=== PATIENT | male | born 1975 | race Caucasian/White ===

== ENCOUNTER 2018-10-09 22:35 | Emergency (ER) | payer OTHER ==
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
--- NOTE | 2018-10-13 07:39 | CR ---
Nasal bone: Three views of the nasal bone were obtained. Comparison: No previous study. Mildly displaced and comminuted nasal bone fracture is identified. Soft tissue swelling is noted. Large retention cyst measuring about 2.7 cm is seen within the right maxillary sinus. Other visualized sinuses are clear. Impression: 1. Comminuted and displaced nasal bone fracture. 2. Probable large retention cyst within the right maxillary sinus. Diagnostic code #3
== END 2018-10-09 23:45 | disposition home or self-care (01) ==
LOC: JD.ED 22:35
DX: S02.2XXA Fracture of nasal bones, initial encounter for closed fracture (principal); I10 Essential (primary) hypertension; F17.210 Nicotine dependence, cigarettes, uncomplicated; W22.8XXA Striking against or struck by other objects, initial encounter
CPT/HCPCS: 70160; 70160-26; 99283; 99283-25

== ENCOUNTER 2019-12-07 03:13 | Emergency (ER) | payer OTHER ==
[2019-12-07] MEDS ORDERED: Sodium Chloride 0.9% 10 ML Syringe FLUSH PRN (03:45)
[2019-12-07] MEDS ORDERED: HYDROmorphone 1 MG/ML Syringe IVPUSH ONE (03:45)
[2019-12-07] MEDS ORDERED: Ondansetron 4 MG/2 ML SDV IVPUSH ONE (03:45)
[2019-12-07] MEDS ORDERED: Sodium Chloride 0.9% 1,000 ML IV SCH (03:45)
--- NOTE | 2019-12-07 05:22 | EDM.PDOC ---
ED HPI GENERAL MEDICAL PROBLEM - General Chief Complaint: Abdominal Pain Stated Complaint: ABDOMINAL PAIN Time Seen by Provider: 12/07/19 03:38 Source of Information: Reports: Patient, RN Notes Reviewed - History of Present Illness INITIAL COMMENTS - FREE TEXT/NARRATIVE: 44 yr old male with onset of R upper abd pain a few hrs ago that is not going away. Had a fatty meal last evening. Has occasional pain like this in the past but not often or recent until now. Nausea, made himself vomit. No fever or chills. No chest pain or trouble breathing. Does not radiate to back. Epigastric Pain Score (Numeric/FACES): 8 - Related Data Allergies Allergy/AdvReac Type Severity Reaction Status Date / Time No Known Allergies Allergy Verified 12/07/19 04:05 Home Meds: Home Meds Losartan/Hydrochlorothiazide [Losartan-HCTZ 50-12.5 MG] 1 tab PO DAILY 12/07/19 [History] Past Medical History Cardiovascular History: Reports: Hypertension - Past Surgical History Musculoskeletal Surgical History: Reports: Knee Replacement, Other (See Below) Social & Family History - Tobacco Use Smoking Status *Q: Current Some Day Smoker Years of Tobacco use: 5 Packs/Tins Daily: 0.2 Used Tobacco, but Quit: No - Caffeine Use Caffeine Use: Reports: Coffee - Recreational Drug Use Recreational Drug Use: No ED ROS GENERAL - Review of Systems Review Of Systems: See Below Constitutional: Denies: Fever, Chills, Diaphoresis HEENT: Reports: No Symptoms Respiratory: Denies: Shortness of Breath Cardiovascular: Denies: Chest Pain GI/Abdominal: Reports: Abdominal Pain Musculoskeletal: Denies: Back Pain Skin: Reports: No Symptoms Neurological: Reports: No Symptoms ED EXAM, GI/ABD - Physical Exam Exam: See Below General Appearance: Alert, Moderate Distress Head: Atraumatic Neck: Supple Respiratory/Chest: No Respiratory Distress, Lungs Clear, Normal Breath Sounds Cardiovascular: Regular Rate, Rhythm GI/Abdominal Exam: Soft, Tender (RUQ, abd otherwise nontender) Back Exam: No: CVA Tenderness (L), CVA Tenderness (R) Extremities: Normal Inspection, Normal Range of Motion Neurological: Alert, Oriented, No Motor/Sensory Deficits Skin Exam: Warm, Normal Color, No Rash Course - Vital Signs Last Recorded V/S: Last Vital Signs Temp 98 F 12/07/19 03:21 Pulse 86 07/21/20 03:21 Resp 18 12/07/19 03:21 BP 170/119 H 12/07/19 03:21 Pulse Ox 95 12/07/19 03:21 - Orders/Labs/Meds Orders: Active Orders 24 hr Category Date Time Status Peripheral IV Care [RC] . DIRECTED Care 12/07/19 03:45 Active Peripheral IV Insertion Adult [OM.PC] Stat Oth 12/07/19 03:45 Ordered Labs: Laboratory Tests 12/07/19 12/07/19 Range/Units 03:51 03:51 WBC 6.59 (4.23-9.07) K/mm3 RBC 5.61 (4.63-6.08) M/mm3 Hgb 16.5 (13.7-17.5) gm/dl Hct 49.3 (40.1-51.0) % MCV 87.9 (79.0-92.2) fl MCH 29.4 (25.7-32.2) pg MCHC 33.5 (32.2-35.5) g/dl RDW Std Deviation 43.0 (35.1-43.9) fL Plt Count 224 (163-337) K/mm3 MPV 9.3 L (9.4-12.3) fl Neut % (Auto) 62.3 (34.0-67.9) % Lymph % (Auto) 21.9 (21.8-53.1) % Kane % (Auto) 10.8 (5.3-12.2) % Eos % (Auto) 2.9 (0.8-7.0) Baso % (Auto) 1.2 (0.1-1.2) % Neut # (Auto) 4.11 (1.78-5.38) K/mm3 Lymph # (Auto) 1.44 (1.32-3.57) K/mm3 Kane # (Auto) 0.71 (0.30-0.82) K/mm3 Eos # (Auto) 0.19 (0.04-0.54) K/mm3 Baso # (Auto) 0.08 (0.01-0.08) K/mm3 Sodium 141 (136-145) mEq/L Potassium 4.1 (3.5-5.1) mEq/L Chloride 103 (98-107) mEq/L Carbon Dioxide 28 (21-32) mEq/L Anion Gap 14.1 (5-15) BUN 13 (7-18) mg/dL Creatinine 1.2 (0.7-1.3) mg/dL Est Cr Clr Drug Dosing 76.79 mL/min Estimated GFR (MDRD) > 60 (>60) mL/min BUN/Creatinine Ratio 10.8 L (14-18) Glucose 120 H (74-106) mg/dL Calcium 9.0 (8.5-10.1) mg/dL Total Bilirubin 0.4 (0.2-1.0) mg/dL AST 25 (15-37) U/L ALT 69 H (16-63) U/L Alkaline Phosphatase 113 (46-116) U/L Total Protein 7.8 (6.4-8.2) g/dl Albumin 3.9 (3.4-5.0) g/dl Globulin 3.9 gm/dL Albumin/Globulin Ratio 1.0 (1-2) Lipase 148 (73-393) U/L Meds: Medications Discontinued Medications Generic Name Dose Route Start Last Admin Trade Name Freq PRN Reason Stop Dose Admin Hydromorphone HCl 1 mg 12/07/19 03:45 12/07/19 03:58 Dilaudid IVPUSH 12/07/19 03:46 1 mg ONETIME ONE Administration Sodium Chloride 1,000 mls @ 999 mls/hr 12/07/19 03:45 12/07/19 03:56 Normal Saline IV 999 mls/hr ONETIME MOISES Administration Ondansetron HCl 4 mg 12/07/19 03:45 12/07/19 03:57 Zofran IVPUSH 12/07/19 03:46 4 mg ONETIME ONE Administration Sodium Chloride 10 ml 12/07/19 03:45 12/07/19 03:56 Saline Flush FLUSH 10 ml ASDIRECTED PRN Administration Keep Vein Open - Re-Assessments/Exams Free Text/Narrative Re-Assessment/Exam: 12/07/19 06:07 labs did come back nl. Pain gone when I rechecked on him about an hr ago. I have offered US but because pain is gone he just wants to go home. Discharge instr. as documented. Departure - Departure Time of Disposition: 05:21 Disposition: Home, Self-Care 01 Condition: Fair Clinical Impression: Abdominal pain Qualifiers: Abdominal location: right upper quadrant Qualified Code(s): R10.11 - Right upper quadrant pain - Discharge Information Instructions: Abdominal Pain, Adult, [id number] Referrals: Emanuel Beal Jr, MD [Primary Care Provider] - Forms: ED Department Discharge Additional Instructions: Avoid fatty food. Follow up with Dr Beal as needed. Return to ED as needed if symptoms worsening in any way. Sepsis Event Note (ED) - Evaluation Sepsis Screening Result: No Definite Risk - Focused Exam Vital Signs: Vital Signs Temp Pulse Resp BP Pulse Ox 12/07/19 03:21 98 F 86 18 170/119 H 95 - My Orders Last 24 Hours: My Active Orders 12/07/19 03:45 Peripheral IV Care [RC] . DIRECTED Peripheral IV Insertion Adult [OM.PC] Stat - Assessment/Plan Last 24 Hours: My Active Orders 12/07/19 03:45 Peripheral IV Care [RC] . DIRECTED Peripheral IV Insertion Adult [OM.PC] Stat
== END 2019-12-07 05:30 | disposition home or self-care (01) ==
LOC: JD.ED 03:13
DX: R10.11 Right upper quadrant pain (principal); R10.13 Epigastric pain; I10 Essential (primary) hypertension; F17.210 Nicotine dependence, cigarettes, uncomplicated; Z79.899 Other long term (current) drug therapy
CPT/HCPCS: 36415; 80053; 83690; 85025; 96361; 96374; 96375; 99284; J1170; J2405; J7030; 99283

== ENCOUNTER 2023-07-30 07:30 | Day surgery (SDC) | payer BC ==
[~2023-07-30 07:30] MED LIST: Dexamethasone 4 MG/ML 5 ML MDV ONE; Lidocaine 1% 2 ML ONE; Lidocaine 1% 4 ML ONE; Midazolam 1 MG/ML 2 ML SDV ONE; Ondansetron 4 MG/2 ML SDV ONE; Propofol 200 MG/20 ML SDV ONE; Rocuronium 50 MG/5 ML Vial ONE; Ropivacaine 0.5% 5 MG/ML 30 ML SDV ONE; dexmedeTOMIDine HCl 200 MCG/2 ML SDV ONE; fentaNYL 100 MCG/2 ML SDV ONE
[2023-07-30] MEDS: Lactated Ringers 1,000 ML IV SCH (07:45)
[2023-07-30] MEDS ORDERED: Labetalol 100 MG/20 ML MDV ONE (07:48)
[2023-07-30] MEDS ORDERED: EPINEPHrine 1 MG/ML SDV ONE (08:05)
[2023-07-30] MEDS ORDERED: ceFAZolin 2 GM Vial ONE (08:43)
[2023-07-30] MEDS ORDERED: ceFAZolin 1 GM Vial ONE (08:44)
[2023-07-30] MEDS ORDERED: fentaNYL 100 MCG/2 ML SDV ONE ×2 (08:51→10:06)
[2023-07-30] MEDS ORDERED: ePHEDrine 50 MG/ML SDV ONE (09:40)
[2023-07-30] MEDS ORDERED: Phenylephrine 1% 10 MG/ML SDV ONE (09:54)
[2023-07-30] MEDS ORDERED: Lactated Ringers 1,000 ML IV ONE (10:00)
[2023-07-30] MEDS ORDERED: Ketorolac 30 MG/ML SDV ONE (11:11)
[2023-07-30] MEDS ORDERED: oxyCODONE 5 MG Tab PO PRN ×2 (11:27→11:30)
[2023-07-30] MEDS: EPINEPHrine 1 MG/ML SDV ONE (14:15)
== END 2023-07-30 12:45 | disposition home or self-care (01) ==
LOC: JD.SDS 07:30
PROVIDERS: ATTEND Orthopaedic Surgery
DX: M75.101 Unspecified rotator cuff tear or rupture of right shoulder, not specified as traumatic (principal); M75.21 Bicipital tendinitis, right shoulder; K21.9 Gastro-esophageal reflux disease without esophagitis; I10 Essential (primary) hypertension; E78.5 Hyperlipidemia, unspecified; G47.00 Insomnia, unspecified; E55.9 Vitamin D deficiency, unspecified; F17.200 Nicotine dependence, unspecified, uncomplicated; E66.01 Morbid (severe) obesity due to excess calories; Z68.41 Body mass index [BMI] 40.0-44.9, adult; Z79.899 Other long term (current) drug therapy
CPT/HCPCS: 01630; 64415; C1713; J0171; J0690; J1100; J1885; J1921; J2250; J2371; J2405; J2704; J2795; J3010; J3490; J7120